=== PATIENT | male | born 1965 | race Caucasian/White ===

== ENCOUNTER → 2018-02-23 | Outpatient (CLI) | payer OTHER ==
[~2018-02-23] MED LIST: ATOR-22 PO; BENZ0.5T2 PO; CLON0.5T3 PO; GADAVIST IV PRN; QUET1TAB37 PO; RANI300T2 PO
--- NOTE | 2018-02-23 11:03 | DIAGNOSTIC IMAGING REPORT ---
LUMBAR SPINE COMBINATION HISTORY: Pain. Neuropathy. LEFT SCIATICA TINGLING,NUMBNESS, S/P LAMINECTOMY TECHNIQUE: Multiplanar multisequence MRI of the lumbar spine was performed both before and after the intravenous administration of contrast. COMPARISON: None. FINDINGS: For the purpose of the report the L5-S1 disc space will be located on axial image 23 of 25. Unremarkable signal characteristics of the vertebral bodies. Slight concave deformity superior endplate L4 considered old. Moderate degenerative disc change from L3 through S1. Findings consistent with a posterior laminectomy and fusion at L5-S1 with evidence for disc spacer at the associated disc space level. No evidence for abnormal postcontrast enhancement. L1-L2: No significant central canal or neural foraminal narrowing. L2-L3: No significant central canal or neural foraminal narrowing. L3-L4: No significant central canal or neural foraminal narrowing. L4-L5: Mild osteophytic narrowing of the neuroforamina bilaterally. No significant compromise of the spinal canal. L5-S1: Findings consistent with posterior decompression laminectomy and fusion. Hardware appears to be intact. No foramina are patent bilaterally. IMPRESSION: 1. Findings consistent with a posterior laminectomy and fusion at L5-S1 with associated disc spacer. 2. Moderate osteophytic narrowing of the neuroforamina bilaterally at L4-L5 slightly increased in prominence on the left as compared to the right. 3. No evidence for disc herniation or significant spinal stenosis. The above report was generated using voice recognition software. It may contain grammatical, syntax or spelling errors. Electronically signed by: Vincenzo Lopez M.D. 02/23/2018 11:02 AM Dictated Date/Time: 02/23/2018 10:53 AM
== END | disposition home or self-care (01) ==
LOC: C.MRI 09:29
PROVIDERS: ATTEND Internal Medicine
DX: M54.42 Lumbago with sciatica, left side (principal); M25.78 Osteophyte, vertebrae

== ENCOUNTER 2020-07-13 10:48 | Inpatient (IN) ==
--- OUTSIDE RECORDS SUMMARY | 2020-07-13 10:50 | External Medical Summary | Continuity of Care Document ---
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 , M.D. Refills: 0 Hydrocodone-Acetaminophen 5-500 MG TABS; TAKE 1 TO 2 TABLETS EVERY 6 HOURS NEEDED FOR PAIN. , M.D. Refills: 0 Ibuprofen 200 MG Oral Tablet; TAKE TABLET PRN , M.D. Refills: 0 SEROquel XR 300 MG Oral Tablet Extended Release 24 Canelo r; TAKE 1 TABLET DAILY. , M.D. Start: 08-Apr-2015 Refills: 0 Atorvastatin Calcium 20 MG Oral Tablet; TAKE 1 TABLET DAILY. , M.D. Refills: 0 clonazePAM 0.5 MG Oral Tablet; TAKE 1 TAB 3 TIMES DAILY Case , JORGE Matson Refills: 0 Procedures History of Lumbar Vertebral Fusion Statu s: Completed Immunizations Influenza On: Jul-2013 Family History Sister Family history of Thyroid Disorder (V18.19) Status: Active Mother Family history of Diabetes Mellitus (V18.0) Status: Active Family history of Heart Disease (V17.49) Status: Active Family history of Alzheimer Disease Status: Active Father Family history of Malignant Pancreatic Neoplasm Status: Acti ve Family history of Neoplasm Of The Prostate Gland Status: Act emily Unknown Family Member Family history of Hypertension (V17.49) Status: Active Comments: Family History Family history of Dementia Status: Active Comments: Fam jose History Social History - Smoking Status Never smoked tobacco Plan of Treatment Planned Observations Planned Goals not documented Results No Known Results Results not documented
--- OUTSIDE RECORDS SUMMARY | 2020-07-13 10:50 | External Medical Summary | Continuity of Care Document ---
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 , M.D. Refills: 0 Hydrocodone-Acetaminophen 5-500 MG TABS; TAKE 1 TO 2 TABLETS EVERY 6 HOURS NEEDED FOR PAIN. , M.D. Refills: 0 Ibuprofen 200 MG Oral Tablet; TAKE TABLET PRN , M.D. Refills: 0 clonazePAM 0.5 MG Oral Tablet; TAKE 1 TAB 3 TIMES DAILY Case JORGE Refills: 0 Atorvastatin Calcium 20 MG Oral Tablet; TAKE 1 TABLET DAILY. , M.D. Refills: 0 SEROquel XR 300 MG Oral Tablet Extended Release 24 Canelo r; TAKE 1 TABLET DAILY. , M.D. Start: 08-Apr-2015 Refills: 0 Procedures History of Lumbar Vertebral [...]
[2020-07-13] MEDS ORDERED: ONDANSETRON INJ 2 MG/ML 2 ML VIAL IV STA (11:18)
[2020-07-13] MEDS ORDERED: MoRPHine SULFATE 4 MG/ML 1 ML CARP\\VIAL IV STA (11:18)
[2020-07-13] MEDS ORDERED: SODIUM CHLORIDE 0.9% 1000ML 2,000 ML IV ONE (11:21)
[2020-07-13] MEDS ORDERED: OPTIRAY 320 125ml IV ONE (11:47)
[2020-07-13 11:49] LABS: Basophils # (auto) 0.01 K/uL (0-0.2); Basophils % (auto) 0.1 %; Eosinophils # (auto) 0.02 K/uL (0-0.5); Eosinophils % (auto) 0.1 %; Hematocrit (blood only) 47.7 % (42-52); Immature Granulocytes # (auto) 0.06 K/uL (0.00-0.02); Immature Granulocytes % (auto) 0.4 %; Lymphocytes # (auto) 0.88 K/uL (1.2-3.4); Lymphocytes % (auto) 6.5 %; Mean Corpuscular Hemoglobin 31.7 pg (25-34); Mean Corpuscular Hgb Conc 33.5 g/dL (32-36); Mean Corpuscular Volume 94.6 fL (80-100); Monocytes # (auto) 1.54 K/uL (0.11-0.59); Monocytes % (auto) 11.3 %; Neutrophils # (auto) 11.13 K/uL (1.4-6.5); Neutrophils % (auto) 81.6 %; Platelet Count 255 K/uL (130-400); RDW Coefficient of Variation 13.1 % (11.5-14.5); RDW Standard Deviation 45.4 fL (36.4-46.3); Red Blood Count 5.04 M/uL (4.7-6.1); White Blood Count 13.64 K/uL (4.8-10.8)
[2020-07-13 12:00] LABS: Partial Thromboplastin Ratio 1.2; Partial Thromboplastin Time 33.9 Seconds (21.0-31.0); Prothrombin Time 10.9 Seconds (9.0-12.0)
[2020-07-13 12:05] LABS: Albumin Level 3.8 gm/dl (3.4-5.0); BUN Creatinine Ratio 12.5 (10-20); Calcium 10.1 mg/dl (8.5-10.1); Creatinine Clr Calc Pharmacy 104.2 ml/min; Est GFR (African American) 112.9; Est GFR (Non-African American) 97.4; Magnesium 2.3 mg/dl (1.8-2.4); Potassium 3.9 mmol/L (3.5-5.1)
[2020-07-13 12:08] LABS: Albumin Globulin Ratio 0.9 (0.9-2); Bilirubin,Total 0.9 mg/dl (0.2-1); Globulin 4.1 gm/dl (2.5-4.0); Total Protein 7.9 gm/dl (6.4-8.2)
[2020-07-13] MEDS ORDERED: AMPICILLIN/SULBACTAM SOD 3,000 MG in 0.9 % SODIUM CHLORIDE 100 ML IV STA (12:15)
--- NOTE | 2020-07-13 12:27 | Emergency Department Note ---
History of Present Illness General Chief complaint: Facial Injury/Pain Stated complaint: 3 TEETH THAT ARE CRACKED Time Seen by Provider: 07/13/20 11:02 History of Present Illness Maximum Pain Intensity: 7 This patient is a 54-year-old male who presents ambulatory to the emergency department for evaluation of severe jaw pain and tooth pain that has gotten progressively worse since 07/07 first when he broke off both his right upper and lower molar when he was eating a cashew. The patient has not followed up with a dentist. He has tried oxycodone with minimal relief of the pain. The patient felt feverish 2 days ago. His temperature is 100 F. He is now having difficulty opening the mouth. He denies any difficulty swallowing or shortness of breath. The pain is throbbing in nature and worse with any movement of the jaw Home Medications Home Medications Medication Instructions Recorded Confirmed Type aspirin 81 mg PO DAILY 07/13/20 07/13/20 History atorvastatin 20 mg PO DAILY 07/13/20 07/13/20 History bupropion HCl 150 mg PO DAILY 07/13/20 07/13/20 History bupropion HCl 300 mg PO DAILY 07/13/20 07/13/20 History cholecalciferol (vitamin D3) 10 mcg PO DAILY 07/13/20 07/13/20 History [Vitamin D3] duloxetine 120 mg PO DAILY 07/13/20 07/13/20 History magnesium oxide 400 mg PO DAILY 07/13/20 07/13/20 History meloxicam 7.5 mg PO BID 07/13/20 07/13/20 History multivitamin 1 tab PO DAILY 07/13/20 07/13/20 History omeprazole 40 mg PO BID 07/13/20 07/13/20 History oxycodone 10 mg PO Q12H 07/13/20 07/13/20 History oxycodone 10 mg PO Q8H PRN 07/13/20 07/13/20 History potassium 99 mg PO DAILY 07/13/20 07/13/20 History propranolol 20 mg PO BID 07/13/20 07/13/20 History quetiapine 25 mg PO HS 07/13/20 07/13/20 History ropinirole 1 mg PO DAILY 07/13/20 07/13/20 History terazosin 1 mg PO BID 07/13/20 07/13/20 History vitamin B complex 1 tab PO DAILY 07/13/20 07/13/20 History Allergies Allergy/AdvReac Type Severity Reaction Status Date / Time No Known Allergies Allergy Unknown Verified 07/13/20 11:41 Past Med/Surg History Medical History (Updated 07/13/20 @ 21:03 by Suzi Grijalva PA-C) Anxiety Chronic pain Depression GERD (gastroesophageal reflux disease) Hyperlipidemia Surgical History (Updated 07/13/20 @ 15:54 by Chelsea Conklin PA-C) History of back surgery Family History (Updated 07/13/20 @ 15:54 by Chelsea Conklin PA-C) Other Cancer Diabetes Social History (Updated 07/13/20 @ 15:54 by Chelsea Conklin PA-C) Smoking Status: Never smoker Second Hand Exposure: Yes; Hx Alcohol Use: Yes Alcohol type: beer, wine and hard liquor Hx Substance Use: No Preferred Language: Turkish Hand Wood Sander Required: No Beliefs That Will Affect Care: None Current Living Situation: Spouse and Family Other Information That Helps Us Care for You: No Feels Safe at Home: Yes Safety Concerns: Feels Safe At This Time Review of Systems A total of 10 systems reviewed and were otherwise negative Physical Exam Vital Signs Vital Signs - 24 hr 07/13/20 10:53 07/13/20 12:00 07/13/20 12:03 Temperature 39.5 C H Temperature Source Oral Pulse Rate 133 H 113 H 115 H Pulse Rate from SpO2 Sensor 113 H 113 H Respiratory Rate 20 23 26 H Respiratory Effort / Characteristics Non-Labored Spontaneous Respiratory Depth Normal Blood Pressure 130/82 133/92 Blood Pressure Mean 98 116 Blood Pressure Position Sitting Pulse Oximetry 96 94 96 Oxygen Delivery Method Room Air Sepsis Recent Fever Within 48 Hours Yes Sepsis New/Unexplained Change in Mental Status No Sepsis Action Taken by Nursing No Action Required 07/13/20 12:10 07/13/20 12:20 07/13/20 12:54 Temperature Temperature Source Pulse Rate 133 H 110 H 124 H Pulse Rate from SpO2 Sensor 119 H 109 H 123 H Respiratory Rate 21 19 24 Respiratory Effort / Characteristics Respiratory Depth Blood Pressure Blood Pressure Mean Blood Pressure Position Pulse Oximetry 96 95 Oxygen Delivery Method Sepsis Recent Fever Within 48 Hours Sepsis New/Unexplained Change in Mental Status Sepsis Action Taken by Nursing 07/13/20 13:00 07/13/20 13:01 07/13/20 13:10 Temperature Temperature Source Pulse Rate 116 H 115 H 116 H Pulse Rate from SpO2 Sensor 115 H 114 H 116 H Respiratory Rate 20 20 24 Respiratory Effort / Characteristics Respiratory Depth Blood Pressure 140/96 Blood Pressure Mean 103 Blood Pressure Position Pulse Oximetry 96 97 96 Oxygen Delivery Method Sepsis Recent Fever Within 48 Hours Sepsis New/Unexplained Change in Mental Status Sepsis Action Taken by Nursing 07/13/20 14:53 Temperature 38.1 C H Temperature Source Oral Pulse Rate Pulse Rate from SpO2 Sensor Respiratory Rate Respiratory Effort / Characteristics Respiratory Depth Blood Pressure Blood Pressure Mean Blood Pressure Position Pulse Oximetry Oxygen Delivery Method Sepsis Recent Fever Within 48 Hours Sepsis New/Unexplained Change in Mental Status Sepsis Action Taken by Nursing Constitutional WD/WN, vitals as above Eyes EOM intact bilaterally ENMT Significant erythema and edema noted particularly over the gumline near the right lower molar. No pointing or purulent drainage noted in the area. Foul odor noted. Overall dentition is very poor. Trismus noted. Edema noted over the right mandibular area. Neck trachea midline Respiratory normal respiratory effort, lungs clear to auscultation Cardiovascular RRR, no murmur, no edema Gastrointestinal (Abdomen) normal bowel sounds, soft, nontender, no hepatosplenomegaly Musculoskeletal no cyanosis or clubbing, extremities motor strength 5/5 Skin no rashes, warm and dry Neurologic Alert and oriented x3. No focal motor deficits. Psychiatric Acting appropriately Course Course Patient was seen and examined Vital signs including blood pressure were reviewed medications list was verified with patient Labs were obtained, and a saline lock was established The patient was put on the monitor. Medications were ordered. Imaging was performed and reviewed. Upon reevaluation, the patient was feeling slightly better. We discussed his results. He voiced understanding The case was discussed with my supervising physician, maxillofacial surgery and the hospitalist service. The patient will be evaluated for likely inpatient management Consultations Consultation #1: Dr. Osorio Consultation #2: [facility] hospitalist group Administered Medications Acetaminophen (Acetaminophen 325 Mg Tab) 325 mg PO Q6H PRN PRN Reason: Pain or Fever Stop: 08/12/20 19:22 Last Admin: 07/13/20 20:42 Dose: 325 mg Documented by: [id number] Oxycodone HCl (Oxycodone Hcl Ir 5 Mg Tab (Immediate Release)) 5 mg PO Q6H PRN PRN Reason: Moderate Pain Stop: 07/27/20 19:22 Last Admin: 07/13/20 21:02 Dose: 5 mg Documented by: [id number] Propranolol HCl (Propranolol Hcl 20 Mg Tab) 20 mg PO BID ANNIE Stop: 08/12/20 20:59 Last Admin: 07/13/20 20:42 Dose: 20 mg Documented by: [id number] Quetiapine Fumarate (Quetiapine Fumarate 25 Mg Tablet) 25 mg PO HS ANNIE Stop: 08/12/20 20:59 Last Admin: 07/13/20 20:42 Dose: 25 mg Documented by: [id number] Terazosin HCl (Terazosin Hcl 1 Mg Cap) 1 mg PO BID ANNIE Stop: 08/12/20 20:59 Last Admin: 07/13/20 20:42 Dose: 1 mg Documented by: [id number] Discontinued Medications Sodium Chloride (Nss 1000ml) 2,000 mls @ 999 mls/hr IV .Q2H1M ONE Stop: 07/13/20 13:21 Last Infusion: 07/13/20 13:35 Dose: 0 mls/hr Documented by: [id number] Admin: 07/13/20 11:34 Dose: 999 mls/hr Documented by: [id number] Ampicillin Sodium/Sulbactam Sodium 3,000 mg/ Sodium Chloride 108 mls @ 200 mls/hr IV NOW STA; Protocol Stop: 07/13/20 12:47 Last Infusion: 07/13/20 13:27 Dose: 0 mls/hr Documented by: [id number] Admin: 07/13/20 12:54 Dose: 200 mls/hr Documented by: [id number] Acetaminophen (Ofirmev) 1,000 mg in 100 mls @ 400 mls/hr IV NOW STA Stop: 07/13/20 15:36 Last Infusion: 07/13/20 16:28 Dose: 0 mls/hr Documented by: [id number] Admin: 07/13/20 15:30 Dose: 400 mls/hr Documented by: [id number] Sodium Chloride (Nss 1000ml) 1,000 mls @ 80 mls/hr IV .[id number] [facility] Stop: 07/14/20 03:59 Last Admin: 07/13/20 15:43 Dose: Not Given Documented by: [id number] Sodium Chloride (Nss 1000ml) 1,000 mls @ 999 mls/hr IV .Q1H1M ONE Stop: 07/13/20 16:33 Last Infusion: 07/13/20 16:29 Dose: 0 mls/hr Documented by: [id number] Admin: 07/13/20 15:41 Dose: 999 mls/hr Documented by: [id number] Sodium Chloride (Nss 1000ml) 1,000 mls @ 80 mls/hr IV .[id number] ANNIE Stop: 07/14/20 17:26 Last Infusion: 07/13/20 19:49 Dose: 0 mls/hr Documented by: [id number] Admin: 07/13/20 16:49 Dose: 80 mls/hr Documented by: [id number] Piperacillin Sod/Tazobactam (Sod 3.375 gm/ Dextrose) 115 mls @ 230 mls/hr IV NOW ONE; Protocol Stop: 07/13/20 17:14 Last Infusion: 07/13/20 18:22 Dose: 0 mls/hr Documented by: [id number] Admin: 07/13/20 17:51 Dose: 230 mls/hr Documented by: [id number] Ioversol (Optiray 320 125ml) 94 ml IV ONCE ONE Stop: 07/13/20 11:48 Last Admin: 07/13/20 11:48 Dose: 94 ml Documented by: [id number] Lidocaine HCl (Lidocaine Hcl Viscous Soln 2% 15 Ml Udc) 15 ml MT NOW ONE Stop: 07/13/20 17:56 Last Admin: 07/13/20 18:20 Dose: 15 ml Documented by: [id number] Metoprolol Tartrate (Metoprolol Tartrate 1 Mg/Ml Vial) 5 mg IV NOW STA Stop: 07/13/20 15:33 Last Admin: 07/13/20 15:51 Dose: 5 mg Documented by: [id number] Morphine Sulfate (Morphine Sulfate 4 Mg/Ml 1 Ml Carp\Vial) 4 mg IV NOW STA Stop: 07/13/20 11:19 Last Admin: 07/13/20 11:34 Dose: 4 mg Documented by: [id number] Morphine Sulfate (Morphine Sulfate 2 Mg/Ml Carp) 2 mg IV NOW STA Stop: 07/13/20 15:23 Last Admin: 07/13/20 15:30 Dose: 2 mg Documented by: [id number] Ondansetron HCl (Ondansetron Inj 2 Mg/Ml 2 Ml Vial) 4 mg IV NOW STA Stop: 07/13/20 11:19 Last Admin: 07/13/20 11:34 Dose: 4 mg Documented by: [id number] Medical Decision Making Medical Records Attestation: I reviewed the patient's medical records. Home Medications Current Medication List: was personally reviewed by me Laboratory Data Attestation: I reviewed the patient's lab results. Result diagrams: 07/13/20 11:30 07/13/20 11:30 Lab Results 07/13/20 07/13/20 07/13/20 Range/Units 11:30 11:30 11:30 WBC 13.64 H (4.8-10.8) K/uL RBC 5.04 (4.7-6.1) M/uL Hgb 16.0 (14.0-18.0) g/dL Hct 47.7 (42-52) % MCV 94.6 (80-100) fL MCH 31.7 (25-34) pg MCHC 33.5 (32-36) g/dL RDW Std Deviation 45.4 (36.4-46.3) fL RDW Coeff of Sherwin 13.1 (11.5-14.5) % Plt Count 255 (130-400) K/uL MPV 10.0 (7.4-10.4) fL Immature Gran % (Auto) 0.4 % Neut % (Auto) 81.6 % Lymph % (Auto) 6.5 % [place] % (Auto) 11.3 % Eos % (Auto) 0.1 % Baso % (Auto) 0.1 % Neut # (Auto) 11.13 H (1.4-6.5) K/uL Lymph # (Auto) 0.88 L (1.2-3.4) K/uL [place] # (Auto) 1.54 H (0.11-0.59) K/uL Eos # (Auto) 0.02 (0-0.5) K/uL Baso # (Auto) 0.01 (0-0.2) K/uL Immature Gran # (Auto) 0.06 H (0.00-0.02) K/uL PT 10.9 (9.0-12.0) Seconds INR 1.0 (0.9-1.1) APTT 33.9 H (21.0-31.0) Seconds PTT Ratio 1.2 Sodium 133 L (136-145) mmol/L Potassium 3.9 (3.5-5.1) mmol/L Chloride 96 L (98-107) mmol/L Carbon Dioxide 28 (21-32) mmol/L Anion Gap 9.0 (3-11) BUN 11 (7-18) mg/dl Creatinine 0.85 (0.6-1.4) mg/dl Est Cr Clr Drug Dosing 104.2 ml/min Est GFR ( Amer) 112.9 Est GFR (Non-Af Amer) 97.4 BUN/Creatinine Ratio 12.5 (10-20) Glucose 107 H (70-99) mg/dl Lactate (0.4-2.0) mmol/L Calcium 10.1 (8.5-10.1) mg/dl Magnesium 2.3 (1.8-2.4) mg/dl Total Bilirubin 0.9 (0.2-1) mg/dl AST 15 (15-37) U/L ALT 28 (12-78) U/L Alkaline Phosphatase 71 (45-117) U/L Total Protein 7.9 (6.4-8.2) gm/dl Albumin 3.8 (3.4-5.0) gm/dl Globulin 4.1 H (2.5-4.0) gm/dl Albumin/Globulin Ratio 0.9 (0.9-2) Urine Color Urine Appearance (Clear) Urine pH (4.5-7.5) Ur Specific [place] (1.000-1.030) Urine Protein (Negative) Urine Glucose (UA) (Negative) Urine Ketones (Negative) Urine Blood (Negative) Urine Nitrite (Negative) Urine Bilirubin (Negative) Urine Urobilinogen (Negative) Ur Leukocyte Esterase (Negative) 07/13/20 07/13/20 Range/Units 11:30 12:56 WBC (4.8-10.8) K/uL RBC (4.7-6.1) M/uL Hgb (14.0-18.0) g/dL Hct (42-52) % MCV (80-100) fL MCH (25-34) pg MCHC (32-36) g/dL RDW Std Deviation (36.4-46.3) fL RDW Coeff of Sherwin (11.5-14.5) % Plt Count (130-400) K/uL MPV (7.4-10.4) fL Immature Gran % (Auto) % Neut % (Auto) % Lymph % (Auto) % [place] % (Auto) % Eos % (Auto) % Baso % (Auto) % Neut # (Auto) (1.4-6.5) K/uL Lymph # (Auto) (1.2-3.4) K/uL [place] # (Auto) (0.11-0.59) K/uL Eos # (Auto) (0-0.5) K/uL Baso # (Auto) (0-0.2) K/uL Immature Gran # (Auto) (0.00-0.02) K/uL PT (9.0-12.0) Seconds INR (0.9-1.1) APTT (21.0-31.0) Seconds PTT Ratio Sodium (136-145) mmol/L Potassium (3.5-5.1) mmol/L Chloride (98-107) mmol/L Carbon Dioxide (21-32) mmol/L Anion Gap (3-11) BUN (7-18) mg/dl Creatinine (0.6-1.4) mg/dl Est Cr Clr Drug Dosing ml/min Est GFR ( Amer) Est GFR (Non-Af Amer) BUN/Creatinine Ratio (10-20) Glucose (70-99) mg/dl Lactate 1.2 (0.4-2.0) mmol/L Calcium (8.5-10.1) mg/dl Magnesium (1.8-2.4) mg/dl Total Bilirubin (0.2-1) mg/dl AST (15-37) U/L ALT (12-78) U/L Alkaline Phosphatase (45-117) U/L Total Protein (6.4-8.2) gm/dl Albumin (3.4-5.0) gm/dl Globulin (2.5-4.0) gm/dl Albumin/Globulin Ratio (0.9-2) Urine Color Yellow Urine Appearance Clear (Clear) Urine pH 5.0 (4.5-7.5) Ur Specific [place] 1.014 (1.000-1.030) Urine Protein Negative (Negative) Urine Glucose (UA) Negative (Negative) Urine Ketones 3+ H (Negative) Urine Blood Negative (Negative) Urine Nitrite Negative (Negative) Urine Bilirubin Negative (Negative) Urine Urobilinogen Negative (Negative) Ur Leukocyte Esterase Negative (Negative) Imaging Data Attestation: I personally reviewed and interpreted this imaging study as follows: Radiologist's Impression: CT facial bones with IV contrast IMPRESSION: 1. A 2.2 x 0.5 cm peripheral enhancing collection abutting the lingual surface of the mandible adjacent to ADA 31 consistent with an abscess. There is a 5 mm periapical lucency at ADA 31. 2. Mild thickening/edema within the right submandibular gland and mild right submandibular lymphadenopathy. This likely reactive to the adjacent mass process. 3. Slight mass effect along the right side of the oropharynx at this level. However, the airway remains patent. ACT 112: Negative or not required by law. Electronically signed by: Mann Williamson M.D. 07/13/2020 12:46 PM Dictated: 07/13/20 1238 Transcribed: 07/13/20 1238 MDM Narrative Differential diagnosis: Abscess, Howie angina, sepsis, fractured tooth, among others This patient is a 54-year-old male who presents emergency department complaining of increasing pain and swelling after breaking off a molar earlier this week. On exam, he did have swelling to the area. He was tachycardic and febrile. He did not have any signs of Howie angina. his labs revealed mild leukocytosis. CT scan was performed consistent with an abscess. This was discussed with maxillofacial surgery who kindly agreed to evaluate the patient. They agreed with IV antibiotics, hydration and hospitalist consultation. The patient will likely be admitted for further IV antibiotics, hydration and possible surgical management. The patient was in agreement and remained stable in the emergency department. Impression & Plan Sepsis, Dental abscess Discharge Plan Visit Data Chief Complaint: Facial Injury/Pain Stated Complaint: 3 TEETH THAT ARE CRACKED ED Provider: Anant Branham ED Midlevel Provider: Suzi Grijalva Discharge Problem: Sepsis, Dental abscess Patient Disposition: Admitted As Inpatient Discharge Instructions Interventions: ED Discharge Assessment Last Done: 07/13/20 16:05
--- NOTE | 2020-07-13 12:48 | CT Scan Report ---
CT facial bones w con HISTORY: broke R upper/lower molar facial swelling sepsis TECHNIQUE: Multiaxial CT images of the facial bones were performed following the use of intravenous c ontrast. COMPARISON STUDY: None. FINDINGS: Small periapical lucency at ADA 31 measuring 5 mm best seen image 57. There is a 2.3 x 0.5 cm peripherally enhancing collection abutting the lingual surface of the mandible adjacent to ADA 31 . This is best seen on axial image 70. This is consistent with an abscess. This abuts the right subma ndibular/sublingual space. There is mild thickening of the right submandibular gland and mild right s ubmandibular lymphadenopathy. This may be reactive to the abscess. There are slight mass effect along the oropharynx at this level. However, the airway remains patent. The parotid glands are symmetric. The visualized parenchyma and orbits are unremarkable. The pterygopalatine fossa are well-maintained. IMPRESSION: 1. A 2.2 x 0.5 cm peripheral enhancing collection abutting the lingual surface of the mandible adjace nt to ADA 31 consistent with an abscess. There is a 5 mm periapical lucency at ADA 31. 2. Mild thickening/edema within the right submandibular gland and mild right submandibular lymphadeno monica. This likely reactive to the adjacent mass process. 3. Slight mass effect along the right side of the oropharynx at this level. However, the airway remai ns patent. ACT 112: Negative or not required by law. Electronically signed by: Mann Williamson M.D. 07/13/2020 12:46 PM
[2020-07-13 13:01] LABS: Appearance Urine Clear (Clear); Bilirubin Urine Negative (Negative); Blood Urine Negative (Negative); Color Urine Yellow; Glucose Urine UA Negative (Negative); Ketones Urine 3+ (Negative); Leukocyte Esterase Urine Negative (Negative); Nitrite Urine Negative (Negative); Protein Urine Negative (Negative); Specific Gravity Urine 1.014 (1.000-1.030); Urobilinogen Urine Negative (Negative)
[2020-07-13] MEDS ORDERED: ACETAMINOPHEN 1,000 MG/100 ML VIAL IV STA (15:22)
[2020-07-13] MEDS ORDERED: MoRPHine SULFATE 2 MG/ML CARP IV STA (15:22)
[2020-07-13] MEDS: SODIUM CHLORIDE 0.9% 1000ML 1,000 ML IV SCH ×2 (15:31→15:43)
[2020-07-13] MEDS ORDERED: METOPROLOL TARTRATE 1 MG/ML VIAL IV STA (15:32)
[2020-07-13] MEDS ORDERED: SODIUM CHLORIDE 0.9% 1000ML 1,000 ML IV ONE (15:33)
--- NOTE | 2020-07-13 15:57 | History & Physical Report ---
Date of Service July 13, 2020 Assessment & Plan (1) Dental abscess: right lower jaw pain and sepsis from oral infection and dental abscess that were caused by fractured molars (three) Pt is 54 y/o M with PMH anxiety, depression, dyslipidemia, chronic pain presented to ER with complaint of right-sided dental pain after right upper and lower molar broke one week ago. Worsening jaw pain and facial edema. +fever/chills, nausea. No vomiting In ER T: 39.5 down to 38.1, P 133 down to 116, R: 23, BP: 130/82 WBC: 13, lactate: 1.2. CT FACE: 1. A 2.2 x 0.5 cm peripheral enhancing collection abutting the lingual surface of the mandible adjacent to ADA 31 consistent with an abscess. There is a 5 mm periapical lucency at ADA 31. 2. Mild thickening/edema within the right submandibular gland and mild right submandibular lymphadenopathy. This likely reactive to the adjacent mass process. 3. Slight mass effect along the right side of the oropharynx at this level. However, the airway remains patent. Meets sepsis criteria In ER given 2L NSS, Unasyn, morphine, zofran Blood cultures pending Give additional 1L NSS followed by 80ml/hr Zosyn Morphine, IV Tylenol prn pain NPO for now Consult maxillofacial - Dr Osorio. Aware from ER provider and reports will come to see pt today CBC, BMP in am (2) Sinus tachycardia: Initial 130's down to 116 Probable secondary to fever, dehydration, and missed propranolol dosing Will give dose of IV Lopressor now since NPO IVF and antibiotics as above Monitor (3) Chronic pain: Follows with outpatient [facility]TM pain management Hold oxycodone for now since NPO Morphine prn (4) Anxiety: (5) Depression: Follows with psych outpatient Hold home meds including propranolol for now since NPO Ativan prn anxiety (6) Hyperlipidemia: Hold statin for now DVT Prophylaxis -SCDs Full Code as per discussion with pt Follows with Dr Campos for routine care Pt was seen and care coordinated with Dr Macedo. See addendum History of Present Illness Chief Complaint: Dental pain Primary Care Provider: Brittany Campos MD Pt is 54 y/o M with PMH anxiety, depression, dyslipidemia, chronic pain presented to ER with complaint of right-sided dental pain x 1 week. Patient states approximately 1 week ago was eating cashew when right upper and lower molar broke. Patient states past several days has been having pain to jaw and noted right facial swelling. 3 days ago patient noticed temp of 100 F. Has not taken temperature last couple days however has felt chills. Patient also complains of nausea without vomiting. Today noticed foul taste in mouth and purulent drainage from right lower gums. Complains of pain with chewing. Today noticed limited ability to open jaw. Also pain with swallowing. Able to swallow saliva. Has not followed with dentist. Only took oxycodone today, did not have his other daily medications. Denies diarrhea, constipation, GORDON, dizziness, syncope, vision changes, neck pain, CP, SOB, orthopnea, palpitations, cough, otalgia, rhinorrhea, abdominal pain, paresthesias, weakness, extremity weakness, extremity edema, rashes, urinary symptoms. Allergies Allergy/AdvReac Type Severity Reaction Status Date / Time No Known Allergies Allergy Unknown Verified 07/13/20 11:41 Home Medications Home Medications Medication Instructions Recorded Confirmed Type aspirin 81 mg PO DAILY 07/13/20 07/13/20 History atorvastatin 20 mg PO DAILY 07/13/20 07/13/20 History bupropion HCl 150 mg PO DAILY 07/13/20 07/13/20 History bupropion HCl 300 mg PO DAILY 07/13/20 07/13/20 History cholecalciferol (vitamin D3) 10 mcg PO DAILY 07/13/20 07/13/20 History [Vitamin D3] duloxetine 120 mg PO DAILY 07/13/20 07/13/20 History magnesium oxide 400 mg PO DAILY 07/13/20 07/13/20 History meloxicam 7.5 mg PO BID 07/13/20 07/13/20 History multivitamin 1 tab PO DAILY 07/13/20 07/13/20 History omeprazole 40 mg PO BID 07/13/20 07/13/20 History oxycodone 10 mg PO Q12H 07/13/20 07/13/20 History oxycodone 10 mg PO Q8H PRN 07/13/20 07/13/20 History potassium 99 mg PO DAILY 07/13/20 07/13/20 History propranolol 20 mg PO BID 07/13/20 07/13/20 History quetiapine 25 mg PO HS 07/13/20 07/13/20 History ropinirole 1 mg PO DAILY 07/13/20 07/13/20 History terazosin 1 mg PO BID 07/13/20 07/13/20 History vitamin B complex 1 tab PO DAILY 07/13/20 07/13/20 History Past Med/Surg History Medical History (Updated 07/13/20 @ 15:57 by Chelsea Conklin PA-C) Anxiety Chronic pain Depression GERD (gastroesophageal reflux disease) Hyperlipidemia Surgical History (Updated 07/13/20 @ 15:54 by Chelsea Conklin PA-C) History of back surgery Family History (Updated 07/13/20 @ 15:54 by Chelsea Conklin PA-C) Other Cancer Diabetes Social History (Updated 07/13/20 @ 15:54 by Chelsea Conklin PA-C) Smoking Status: Never smoker Hx Alcohol Use: Yes (2-3 beers on the weekends) Hx Substance Use: No Preferred Language: German Feels Safe at Home: Yes Review of Systems Review of Systems: All systems reviewed & are unremarkable except as noted in HPI & below Physical Exam Physical Exam: General: no acute distress, WDWN Head: normocephalic, atraumatic Eyes: PERRL, EOM's intact, conjunctiva non-injected, anicteric ENT: normal inspection external ears, nose, mucous membranes dry; poor dentition throughout, right upper and lower molars fractured; +right sided facial swelling, limited opening of jaw Neck: supple, trachea midline, +cervical lymphadenopathy, ROM neck intact Lungs: clear, no respiratory distress, no wheezing/rhonchi/rales CV: regular rhythm, +tachycardia, rate 120, no murmur, no pretibial edema Abd: normal BS, soft, non-tender Ext: no cyanosis, no calf tenderness Neuro: A&O x 3, no focal deficits noted, normal affect Skin: warm, dry Results & Data Results & Data ([facility]) Vital Signs (Past 12 Hours) Vital Signs Temp Pulse Resp BP Pulse Ox 07/13/20 14:53 38.1 C H 07/13/20 13:10 116 H 24 96 07/13/20 13:01 115 H 20 97 07/13/20 13:00 116 H 20 140/96 96 07/13/20 12:54 124 H 24 07/13/20 12:20 110 H 19 95 07/13/20 12:10 133 H 21 96 07/13/20 12:03 115 H 26 H 96 07/13/20 12:00 113 H 23 133/92 94 07/13/20 10:53 39.5 C H 133 H 20 130/82 96 Laboratory Results Short CBC 07/13/20 Range/Units 11:30 WBC 13.64 H (4.8-10.8) K/uL Hgb 16.0 (14.0-18.0) g/dL Hct 47.7 (42-52) % Plt Count 255 (130-400) K/uL BMP 07/13/20 11:30 Sodium 133 L Potassium 3.9 Chloride 96 L Carbon Dioxide 28 BUN 11 Creatinine 0.85 Glucose 107 H Calcium 10.1 Liver Function 07/13/20 Range/Units 11:30 Total Bilirubin 0.9 (0.2-1) mg/dl AST 15 (15-37) U/L ALT 28 (12-78) U/L Alkaline Phosphatase 71 (45-117) U/L Albumin 3.8 (3.4-5.0) gm/dl Urine 07/13/20 Range/Units 12:56 Urine Color Yellow Urine Appearance Clear (Clear) Urine pH 5.0 (4.5-7.5) Ur Specific [place] 1.014 (1.000-1.030) Urine Protein Negative (Negative) Urine Glucose (UA) Negative (Negative) Diagnostic Findings CT FACE: IMPRESSION: 1. A 2.2 x 0.5 cm peripheral enhancing collection abutting the lingual surface of the mandible adjacent to ADA 31 consistent with an abscess. There is a 5 mm periapical lucency at ADA 31. 2. Mild thickening/edema within the right submandibular gland and mild right submandibular lymphadenopathy. This likely reactive to the adjacent mass process. 3. Slight mass effect along the right side of the oropharynx at this level. However, the airway remains patent. Code Status & VTE Plan VTE Prophylaxis Plan VTE Prophylaxis will be ordered: Yes Supervising Physician Co-Signing Physician Notes I, Dr. Buddy Macedo, have seen and examined the patient Jatin Cooper with physician nurses medical assistants phlebotomists On Physical Exam General: no acute distress HEENT: inflamed right lower gums, right lower jaw tenderness to palpation Heart: tachycardic Lung: clear to auscultation, no wheezing Abdomen: soft, nontender, positive bowel sounds Neuro/Psych: no focal neurological deficits, normal affect Assessment and Plan -This is a patient with right lower jaw pain and sepsis from oral infection and dental abscess that were caused by fractured molars (three) -patient was given IV Unasyn and already 2 liters of IV fluids by the ED provider; ED provider called Oral & Maxillofacial Surgeon Dr. Osorio who plans to take patient to operating room -COVID 19 screening was ordered to be performed before patient goes to operating room for procedure -will plan to continue IV antibiotics and use IV Zosyn for better microbial coverage. Follow the blood cultures and any subsequent specimens that Dr. Osorio sends off from the operating room -give further IV fluids as needed additional 1 more liter of IV fluids to be given in the ED. Determine when patient can be allowed to have a diet after the procedure. -give prn pain medications and IV acetaminophen for pain or fever -avoid NSAIDs to prevent exacerbating any potential oral bleed -prn IV metoprolol 5 mg q4 hours as needed if heart rates above 110 bpm. Patient can resume home oral dose of propanol and or oral home medications for anxiety and depression when allowed to eat. Can give prn IV Ativan as substitute for now -agree with other assessment and plans as documented by physician nurses medical assistants phlebotomists -My colleague hospitalist Dr. Bowser will be following the patient starting on 07/14/2020
[2020-07-13] MEDS ORDERED: SODIUM CHLORIDE 0.9% 1000ML 1,000 ML IV SCH (16:27)
[2020-07-13] MEDS ORDERED: MoRPHine SULFATE 4 MG/ML 1 ML CARP\\VIAL IV PRN (16:27)
[2020-07-13] MEDS ORDERED: POLYETHYLENE (MIRALAX) 17 GM PACK PO PRN (16:27)
[2020-07-13] MEDS ORDERED: ONDANSETRON INJ 2 MG/ML 2 ML VIAL IV PRN (16:27)
[2020-07-13] MEDS ORDERED: METOPROLOL TARTRATE 1 MG/ML VIAL IV PRN (16:27)
[2020-07-13] MEDS ORDERED: ACETAMINOPHEN 1000 MG/100 ML IV IV PRN (16:27)
[2020-07-13] MEDS ORDERED: LORazepam 0.5 MG/1 ML VIAL IV PRN (16:27)
[2020-07-13] MEDS ORDERED: PIPERACILL/TAZOBAC CONSULT ACTIVE PRN (16:31)
[2020-07-13] MEDS ORDERED: PIPERACILLIN/TAZOBACTAM 3.375 GM in DEXTROSE 5% 100 ML IV ONE (16:45)
[2020-07-13] MEDS ORDERED: LIDOCAINE HCL VISCOUS SOLN 2% 15 ML UDC MT ONE (17:55)
[2020-07-13] MEDS ORDERED: LIDOCAINE HCL VISCOUS SOLN 2% 15 ML UDC MT PRN (17:55)
--- NOTE | 2020-07-13 18:29 | Surgery Consultation ---
Date of Consultation July 13, 2020 Oral Maxillofacial Surgery Exam emergency consult trismus, swelling, abscess fractured tooth 3 31 Present Complaint: I have pain/swelling/drainage from my infected/fractured lower right molar teeth. Symptoms have been ongoing for a while they would come and go. A detailed oral exam was completed. Finding--acute facial and gingival/ sublingual swelling associated with the fractured # 31 tooth, tender gingival tissue with deep pocket formation.removal of # [address] scan reviewed and shows acute abscess associated with # 31 swelling Floor of mouth, mandibular space and submandibular space. The mandibular space is why patient has trismus. He is able to open mouth but due to pain restricted. Soft tissue of the tongue, hard/soft palate, posterior pharyngeal area all with in normal limits, no pathology or abnormal findings noted. Lingual swelling (floor of mouth) swollen and L&D needed in this area as well as submandibular and Mandibular space. Cancer exam--No lesions noted that require follow up or Bx.However patient does use chew tobacco and tissue changes noted as well as severely abraded teeth Oral Care---Overall oral care is poor Occlusion---Class III TMJ exam: No pop, clicking, pain, good ROM, No history of TMJ injury or dysfunction Periodontal exam---poor secondary to chew tobacco and lack of dental care Neck is supple, FROM, Able to extend and flex neck w/o difficulty, no masses other than the swelling from current infection , no abnormalities, no airway issues, no evidence of sleep apnea. Plan: Set up with general anesthesia in hospital due to complexity of the procedure Risks reviewed (see below) Physical exam completed I reviewed the treatment plan and consent with the patient . Understanding was expressed. Time was given for questions regarding the surgery, risks and post op care. The procedure will be set up in the the main OR tomorrow AM. Review of informed consent with patient Reason for surgery = Drain infection remove fractured # 31 tooth The following # 31 tooth is decayed and fractured and removal is indicated CHECO: Risks discussed: Pain,swelling,infection, dry socket, delayed healing, nerve injury to face,lips,tongue,chin area which could be permanent (rare). TMJ, jaw stiffness, change in bite (rare), ear pain (referred). Need to leave a small root fragment in place to avoid injury to nerve or sinus. Home care reviewed--tooth brushing, rinsing, follow up care with Dr Osorio. diet=[id number] dental. Discussed activity level, driving/work while on Rx pain Meds. Plan: NPO Midnight For the GA and surgery at Hospital Supervising Physician Co-Signing Physician Notes I, Dr. Buddy Macedo, have seen and examined the patient Jatin Cooper with physician school office assistant On Physical Exam General: no acute distress HEENT: inflamed right lower gums, right lower jaw tenderness to palpation Heart: tachycardic Lung: clear to auscultation, no wheezing Abdomen: soft, nontender, positive bowel sounds Neuro/Psych: no focal neurological deficits, normal affect Assessment and Plan -This is a patient with right lower jaw pain and sepsis from oral infection and dental abscess that were caused by fractured molars (three) -patient was given IV Unasyn and already 2 liters of IV fluids by the ED provider; ED provider called Oral & Maxillofacial Surgeon Dr. Osorio who plans to take patient to operating room -COVID 19 screening was ordered to be performed before patient goes to operating room for procedure -will plan to continue IV antibiotics and use IV Zosyn for better microbial coverage. Follow the blood cultures and any subsequent specimens that Dr. Osorio sends off from the operating room -give further IV fluids as needed additional 1 more liter of IV fluids to be given in the ED. Determine when patient can be allowed to have a diet after the procedure. -give prn pain medications and IV acetaminophen for pain or fever -avoid NSAIDs to prevent exacerbating any potential oral bleed -prn IV metoprolol 5 mg q4 hours as needed if heart rates above 110 bpm. Patient can resume home oral dose of propanol and or oral home medications for anxiety and depression when allowed to eat. Can give prn IV Ativan as substitute for now -agree with other assessment and plans as documented by physician school office assistant -My colleague hospitalist Dr. Bowser will be following the patient starting on 07/14/2020 History of Present Illness Attending Physician: Buddy Macedo MD Allergies Allergy/AdvReac Type Severity Reaction Status Date / Time No Known Allergies Allergy Unknown Verified 07/13/20 11:41 Home Medications Home Medications Medication Instructions Recorded Confirmed Type aspirin 81 mg PO DAILY 07/13/20 07/13/20 History atorvastatin 20 mg PO DAILY 07/13/20 07/13/20 History bupropion HCl 150 mg PO DAILY 07/13/20 07/13/20 History bupropion HCl 300 mg PO DAILY 07/13/20 07/13/20 History cholecalciferol (vitamin D3) 10 mcg PO DAILY 07/13/20 07/13/20 History [Vitamin D3] duloxetine 120 mg PO DAILY 07/13/20 07/13/20 History magnesium oxide 400 mg PO DAILY 07/13/20 07/13/20 History meloxicam 7.5 mg PO BID 07/13/20 07/13/20 History multivitamin 1 tab PO DAILY 07/13/20 07/13/20 History omeprazole 40 mg PO BID 07/13/20 07/13/20 History oxycodone 10 mg PO Q12H 07/13/20 07/13/20 History oxycodone 10 mg PO Q8H PRN 07/13/20 07/13/20 History potassium 99 mg PO DAILY 07/13/20 07/13/20 History propranolol 20 mg PO BID 07/13/20 07/13/20 History quetiapine 25 mg PO HS 07/13/20 07/13/20 History ropinirole 1 mg PO DAILY 07/13/20 07/13/20 History terazosin 1 mg PO BID 07/13/20 07/13/20 History vitamin B complex 1 tab PO DAILY 07/13/20 07/13/20 History Patient History Medical History (Updated 07/13/20 @ 15:57 by Chelsea Conklin PA-C) Anxiety Chronic pain Depression GERD (gastroesophageal reflux disease) Hyperlipidemia Surgical History (Updated 07/13/20 @ 15:54 by Chelsea Conklin PA-C) History of back surgery Family History (Updated 07/13/20 @ 15:54 by Chelsea Conklin PA-C) Other Cancer Diabetes Social History (Updated 07/13/20 @ 15:54 by Chelsea Conklin PA-C) Smoking Status: Never smoker Hx Alcohol Use: Yes (2-3 beers on the weekends) Hx Substance Use: No Preferred Language: Vietnamese Feels Safe at Home: Yes Results & Data ([facility]) Vital Signs (Past 12 Hours) Vital Signs Temp Pulse Resp BP Pulse Ox 07/13/20 16:05 92 H 18 125/83 94 07/13/20 15:51 116 H 124/93 07/13/20 14:53 38.1 C H 07/13/20 13:10 116 H 24 96 07/13/20 13:01 115 H 20 97 07/13/20 13:00 116 H 20 140/96 96 07/13/20 12:54 124 H 24 07/13/20 12:20 110 H 19 95 07/13/20 12:10 133 H 21 96 07/13/20 12:03 115 H 26 H 96 07/13/20 12:00 113 H 23 133/92 94 07/13/20 10:53 39.5 C H 133 H 20 130/82 96 PG Care Time/CCT Total # of Minutes Spent Total Time Spent with Patient: Total time spent is greater than 50% in coordination of care (as documented) at patient's floor/unit and/or counseling patient: Coding Level of Care Code 34832 Initial Inpt Care Lvl 3
[2020-07-13] MEDS: ACETAMINOPHEN 325 MG TAB PO PRN (20:42)
[2020-07-13] MEDS: PROPRANOLOL HCL 20 MG TAB PO SCH (20:42)
[2020-07-13] MEDS: TERAZOSIN HCL 1 MG CAP PO SCH (20:42)
[2020-07-13] MEDS: QUEtiapine FUMARATE 25 MG TABLET PO SCH (20:42)
[2020-07-13] MEDS: oxyCODONE HCL IR 5 MG TAB (IMMEDIATE RELEASE) PO PRN (21:02)
[2020-07-13] MEDS: PIPERACILLIN/TAZOBACTAM 3.375 GM in DEXTROSE 5% 100 ML IV SCH (22:03)
[2020-07-14] MEDS: MoRPHine SULFATE 2 MG/ML CARP IV PRN ×2 (03:09→18:48)
[2020-07-14] MEDS: oxyCODONE HCL IR 5 MG TAB (IMMEDIATE RELEASE) PO PRN ×2 (03:49→18:40)
[2020-07-14] MEDS: PIPERACILLIN/TAZOBACTAM 3.375 GM in DEXTROSE 5% 100 ML IV SCH ×3 (06:45→22:06)
[2020-07-14 06:55] LABS: Basophils # (auto) 0.03 K/uL (0-0.2); Basophils % (auto) 0.3 %; Eosinophils # (auto) 0.08 K/uL (0-0.5); Eosinophils % (auto) 0.9 %; Hematocrit (blood only) 39.2 % (42-52); Hemoglobin 13.1 g/dL (14.0-18.0); Immature Granulocytes # (auto) 0.03 K/uL (0.00-0.02); Immature Granulocytes % (auto) 0.3 %; Lymphocytes # (auto) 1.69 K/uL (1.2-3.4); Lymphocytes % (auto) 19.7 %; Mean Corpuscular Hgb Conc 33.4 g/dL (32-36); Mean Corpuscular Volume 95.6 fL (80-100); Mean Platelet Volume 9.7 fL (7.4-10.4); Monocytes # (auto) 1.53 K/uL (0.11-0.59); Monocytes % (auto) 17.8 %; Neutrophils # (auto) 5.24 K/uL (1.4-6.5); Platelet Count 197 K/uL (130-400); RDW Coefficient of Variation 13.2 % (11.5-14.5); RDW Standard Deviation 46.3 fL (36.4-46.3)
[2020-07-14 07:22] LABS: BUN Creatinine Ratio 13.9 (10-20); Calcium 9.1 mg/dl (8.5-10.1); Creatinine Clr Calc Pharmacy 101.5 ml/min; Est GFR (African American) 118.2; Potassium 4.1 mmol/L (3.5-5.1)
[2020-07-14] MEDS: buPROPion XL 300 MG TABCR PO SCH (08:28)
[2020-07-14] MEDS: PROPRANOLOL HCL 20 MG TAB PO SCH ×2 (08:28→20:48)
[2020-07-14] MEDS: ATORVASTATIN 20 MG TAB PO SCH (08:28)
[2020-07-14] MEDS: buPROPion XL 150 MG TABCR PO SCH (08:29)
[2020-07-14] MEDS: TERAZOSIN HCL 1 MG CAP PO SCH ×2 (08:29→20:48)
[2020-07-14] MEDS: rOPINIRole HCL 1 MG TABLET PO SCH (08:31)
--- NOTE | 2020-07-14 09:49 | Anesthesiology Consultation ---
Date of Service July 14, 2020 Assessment & Plan (1) Encounter for pre-operative examination: History Surgery Operation Date: 07/14/20 12:00 Proposed Procedures p Incision and Drainage General - Adrian Osorio DMD s Excision Oral Cavity - Adrian Osorio DMD Height/Weight Height: 5 ft 7 in Weight: 77 kg Allergies Allergy/AdvReac Type Severity Reaction Status Date / Time No Known Allergies Allergy Unknown Verified 07/13/20 11:41 Medications Home Medications Medication Instructions Recorded Confirmed Last Taken aspirin 81 mg PO DAILY 07/13/20 07/13/20 07/12/20 atorvastatin 20 mg PO DAILY 07/13/20 07/13/20 07/12/20 bupropion HCl 150 mg PO DAILY 07/13/20 07/13/20 07/12/20 bupropion HCl 300 mg PO DAILY 07/13/20 07/13/20 07/12/20 cholecalciferol (vitamin D3) 10 mcg PO DAILY 07/13/20 07/13/20 07/12/20 [Vitamin D3] duloxetine 120 mg PO DAILY 07/13/20 07/13/20 07/12/20 magnesium oxide 400 mg PO DAILY 07/13/20 07/13/20 07/12/20 meloxicam 7.5 mg PO BID 07/13/20 07/13/20 07/12/20 multivitamin 1 tab PO DAILY 07/13/20 07/13/20 07/12/20 omeprazole 40 mg PO BID 07/13/20 07/13/20 07/12/20 oxycodone 10 mg PO Q12H 07/13/20 07/13/20 07/13/20 oxycodone 10 mg PO Q8H PRN 07/13/20 07/13/20 07/12/20 potassium 99 mg PO DAILY 07/13/20 07/13/20 07/12/20 propranolol 20 mg PO BID 07/13/20 07/13/20 07/12/20 quetiapine 25 mg PO HS 07/13/20 07/13/20 07/12/20 ropinirole 1 mg PO DAILY 07/13/20 07/13/20 07/12/20 terazosin 1 mg PO BID 07/13/20 07/13/20 07/12/20 vitamin B complex 1 tab PO DAILY 07/13/20 07/13/2007/12/20 Active Medications Generic Name Dose Route Start Last Admin Trade Name Freq PRN Reason Stop Dose Admin Acetaminophen 1,000 mg 07/13/20 16:27 07/14/20 06:46 Acetaminophen 1000 Mg/100 Ml Iv IV 07/14/20 16:26 1,000 mg Q8H PRN Administration Pain or Fever Acetaminophen 325 mg 07/13/20 19:23 07/13/20 20:42 Acetaminophen 325 Mg Tab PO 08/12/20 19:22 325 mg Q6H PRN Administration Pain or Fever Atorvastatin Calcium 20 mg 07/14/20 09:00 07/14/20 08:28 Atorvastatin 20 Mg Tab PO 08/13/20 08:59 20 mg DAILY ANNIE Administration Bupropion HCl 300 mg 07/14/20 09:00 07/14/20 08:28 Bupropion Xl 300 Mg Tabcr PO 08/13/20 08:59 300 mg DAILY ANNIE Administration Bupropion HCl 150 mg 07/14/20 09:00 07/14/20 08:29 Bupropion Xl 150 Mg Tabcr PO 08/13/20 08:59 150 mg DAILY ANNIE Administration Lorazepam 0.5 mg in 1 mls @ 1 mls/min 07/13/20 16:27 07/14/20 07:25 Ativan IV 08/12/20 16:26 1 mls/min Q6H PRN Administration Anxiety Piperacillin Sod/Tazobactam 115 mls @ 28.75 mls/hr 07/13/20 22:00 07/14/20 11:09 Sod 3.375 gm/ Dextrose IV 07/23/20 21:59 Infused Q8H ANNIE Infusion Protocol Lidocaine HCl 15 ml 07/13/20 17:55 07/14/20 03:49 Lidocaine Hcl Viscous Soln 2% 15 Ml Udc MT 08/12/20 17:54 15 ml PRN PRN Administration Pain Morphine Sulfate 2 mg 07/13/20 17:13 07/14/20 03:09 Morphine Sulfate 2 Mg/Ml Carp IV 07/27/20 16:26 2 mg Q6H PRN Administration severe pain Oxycodone HCl 5 mg 07/13/20 19:23 07/14/20 03:49 Oxycodone Hcl Ir 5 Mg Tab (Immediate Release) PO 07/27/20 19:22 5 mg Q6H PRN Administration Moderate Pain Propranolol HCl 20 mg 07/13/20 21:00 07/14/20 08:28 Propranolol Hcl 20 Mg Tab PO 08/12/20 20:59 20 mg BID ANNIE Administration Quetiapine Fumarate 25 mg 07/13/20 21:00 07/13/20 20:42 Quetiapine Fumarate 25 Mg Tablet PO 08/12/20 20:59 25 mg HS ANNIE Administration Ropinirole HCl 1 mg 07/14/20 09:00 07/14/20 08:31 Ropinirole Hcl 1 Mg Tablet PO 08/13/20 08:59 1 mg DAILY ANNIE Administration Terazosin HCl 1 mg 07/13/20 21:00 07/14/20 08:29 Terazosin Hcl 1 Mg Cap PO 08/12/20 20:59 1 mg BID ANNIE Administration NPO Date Last Intake of Fluids: 07/14/20 Time Last Intake of Fluids: 01:00 Date Last Intake of Solids: 07/13/20 Time Last Intake of Solids: 23:00 Past Medical History Medical History Anxiety Chronic pain Depression GERD (gastroesophageal reflux disease) Hyperlipidemia Past Family History Family History Other Cancer Diabetes Past Surgical History Surgical History History of back surgery Social History Smoking Status: Never smoker Hx Alcohol Use: Yes Alcohol type: beer, wine and hard liquor alcohol intake frequency: a few times a month Hx Substance Use: No substance use type: does not use Physical Exam Vital Signs Last Vital Signs Temp 37.4 C 07/14/20 08:02 Pulse 83 07/14/20 08:02 Resp 16 07/14/20 08:02 BP 134/79 07/14/20 08:02 Pulse Ox 94 07/14/20 08:02 Testing Laboratory Results 07/14/20 06:30 07/14/20 06:30 PT 10.9 Seconds (9.0-12.0) 07/13/20 11:30 INR 1.0 (0.9-1.1) 07/13/20 11:30 APTT 33.9 Seconds (21.0-31.0) H 07/13/20 11:30 Urine Color Yellow 07/13/20 12:56 Urine Appearance Clear (Clear) 07/13/20 12:56 Urine pH 5.0 (4.5-7.5) 07/13/20 12:56 Ur Specific [place] 1.014 (1.000-1.030) 07/13/20 12:56 Urine Protein Negative (Negative) 07/13/20 12:56 Urine Glucose (UA) Negative (Negative) 07/13/20 12:56 Urine Ketones 3+ (Negative) H 07/13/20 12:56 Urine Nitrite Negative (Negative) 07/13/20 12:56 Ur Leukocyte Esterase Negative (Negative) 07/13/20 12:56 Electrocardiogram Date: 07/14/20 Normal sinus rhythm Left axis deviation Abnormal ECG When compared with ECG of 19-MAR-2015 19:51, Vent. rate has decreased BY 33 BPM
[2020-07-14] MEDS ORDERED: MIDAZOLAM HCL 1 MG/ML 2ML VIAL ONE (10:39)
[2020-07-14] MEDS ORDERED: fentaNYL citrate 100 MCG/2 ML VIAL ONE ×2 (10:39→12:52)
[2020-07-14] MEDS ORDERED: SUCCINYLCHOLINE CHLORIDE 20 MG/ML 10 ML VIAL IV ONE (10:41)
[2020-07-14] MEDS ORDERED: PROPOFOL IV EMULSION 10 MG/ML 20 ML VIAL IV ONE (10:41)
[2020-07-14] MEDS ORDERED: LIDOCAINE HCL 2% 2 ML VIAL/AMP(20MG/ML) INFIL ONE (10:41)
[2020-07-14] MEDS ORDERED: CHLORHEXIDINE GLUCONATE 0.12% 480 ML ONE (11:10)
[2020-07-14] MEDS ORDERED: BUPIVACAINE/EPINEPHRINE 0.5% 1:200,000 1.8 ML CARP ONE (11:10)
[2020-07-14] MEDS ORDERED: ATROPINE SULFATE 0.1 MG/ML 10ML SYR IV PRN (11:17)
[2020-07-14] MEDS ORDERED: fentaNYL citrate 100 MCG/2 ML VIAL IV PRN (11:17)
[2020-07-14] MEDS ORDERED: HYDROmorphone INJ 1 MG/ML SYRINGE IV PRN (11:17)
[2020-07-14] MEDS ORDERED: ePHEDrine sulfate 50 MG/ML AMP IV PRN (11:17)
[2020-07-14] MEDS ORDERED: ONDANSETRON INJ 2 MG/ML 2 ML VIAL IV PRN (11:17)
--- NOTE | 2020-07-14 11:47 | History & Physical Bridge Note ---
Date of Service July 14, 2020 History & Physical Bridge Note I have examined the patient, reviewed the History & Physical and in the interval since the performance of the History & Physical I have noted the following changes of clinical significance: no changes noted More swelling intraoral of the mandibular space and floor of mouth. Plan L&D and Ext of now OK for procedure
[2020-07-14] MEDS ORDERED: ONDANSETRON INJ 2 MG/ML 2 ML VIAL ONE (12:56)
[2020-07-14] MEDS ORDERED: DEXAMETHASONE SOD INJ 4 MG/ML VIAL ONE (12:56)
--- NOTE | 2020-07-14 13:35 | Operative Report ---
Post Operative Report Pre & Post Diagnosis PLEASE SEE FULL OP REPORT TIME STAMPED AT 13.36 ADRIAN HART DMD Operation Date: 07/14/20 12:30 Pre-Op Diagnosis: DENTAL ABSCESS Post-Op Diagnosis: DENTAL ABSCESS I identified the patient and participated in the time-out.: Yes Procedure Operation Date: 07/14/20 12:30 Actual Procedures p Incision and Drainage of face(Right) - Adrian Hart DMD s Excision Oral Cavity of fractured tooth #31 - Adrian Hart DMD Surgeon Adrian Hart DMD Programming Development Project Manager NONE Estimated Blood Loss 10 Findings Consistent with Post-Op Diagnosis Specimens see OP report at 13;36 Description of Procedure see report times stamped 13:36 I attest to the content of the Intraoperative Record and any orders documented therein. Any exceptions are noted below.
--- NOTE | 2020-07-14 13:36 | Post Operative Brief Note ---
PG Immediate Post Op with CF Date of Surgery July 14, 2020 Pre & Post Diagnosis Operation Date: 07/14/20 12:30 Pre-Op Diagnosis: DENTAL ABSCESS Post-Op Diagnosis: DENTAL ABSCESS I identified the patient and participated in the time-out.: Yes Procedure Operation Date: 07/14/20 12:30 Actual Procedures p Incision and Drainage of face(Right) - Adrian Osorio DMD s Excision Oral Cavity of fractured tooth #31 - Adrian Osorio DMD Surgeon Adrian Osorio DMD Senior Escrow Officer none Estimated Blood Loss 10 Findings Consistent with Post-Op Diagnosis Specimens Specimen Description: Culture set #1 Submandibular abscess for aero/jaylen and gram. A. Cyst right jaw.
--- NOTE | 2020-07-14 13:49 | Operative Report ---
Post Operative Report Pre & Post Diagnosis Operation Date: 07/14/20 12:30 Pre-Op Diagnosis: DENTAL ABSCESS Post-Op Diagnosis: DENTAL ABSCESS I identified the patient and participated in the time-out.: Yes Procedure Operation Date: 07/14/20 12:30 Actual Procedures p Incision and Drainage of face(Right) - Adrian Osorio DMD s Excision Oral Cavity of fractured tooth #31 - Adrian Osorio DMD Actual Procedures p Incision and Drainage Submandibular Abscess; Removal of Tooth #28(Not Applicable) - Adrian Osorio DMD Once cleared for surgery general anesthesia was achieved, the eyes were protected by the anesthesia dept criteria. A time out was take for patient ID, antibiotics, equipment and position verification once all agreed the procedure began. Local anesthesia using Marcaine with a vasoconstrictor ( 1.8 ml per site) given into right inferior alveolar nerve A throat pack was placed after the oral cavity was irrigated with saline. Once a surgical level of anesthesia was obtained and the local anesthesia was given time for the blocks the surgery was started. I turned my attention to the infection which was located in the floor of the mouth and submental area. The tongue was elevated and there was also swelling associated with tooth #31 ( see CT scan report) Incision and Drainage Using a 15 blade an incision was made lateral to the alveolar ridge posterior to # 31 as there was a very large dense mass of tissue. Once the incision was made a lot of pus extruded from the site. This drainage was cultured for anaerobic and aerobic bacteria. A curved hemostat was carefully placed into the infected space along the medial side of the lower jaw and into the sublingual space as well as the submandibular space. Some further drainage was now allowed to escape. I palpated the chin and submental area and no further drainage was expressed. The area was irrigated with at least 100 ml of NS solution. I now turned my attention to remove the # 31tooth. Lower # 31 The full thick Muco-periosteal flap was made on the facial aspect from # 26-32. The flap was reflected to expose the the subperiosteal space the bone adjacent to # 31. The rogue and drill was used to remove bone, the tooth was removed with a 301 elevator, the mental nerve was intact, there was a large amount of granulation tissue on the apex and some more pus that was expressed. To prevent further tissue and tongue irritation using a round but the sharp edges of the teeth were smoothed. Excision of mass right posterior area 1 cm a large mass was present over the area were tooth # 32 was removed. This mass extended from the distal of # 31 to the retromolar pad area. With a 15 blade an elliptical excision was made to remove the mass. Care was take to stay well above the lingual nerve location. However given the gross swelling and poor tissue quality the anatomy was far less then ideal. Once I was satisfied with the excision, the bone was filled smooth and the area was irrigated, all bleeding was controlled. Using both a 2-0 and 3-0 chromic closure was obtained. The tissue was sent for pathology. When all the procedure was completed I inspected the site to insure all bleeding was controlled. I removed the throat pack and suctioned the throat. A gauze pressure dressing was placed. All instrument and sponge count was correct. the patient was allowed to awake from the anesthesia. Once full awake the anesthesia tube was removed and the patient was taken to the recovery room with all vital sign stable. The patient tolerated the surgery very well. I will follow the patient in my office, Rx and instructions will be given upon discharge. Surgeon Adrian Osorio, DMD Digital Media Director none Estimated Blood Loss 10 Findings Consistent with Post-Op Diagnosis Specimens tissue Biopsy and C and S Description of Procedure I&D, Bx of mass and ext # 31 I attest to the content of the Intraoperative Record and any orders documented therein. Any exceptions are noted below. Supervising Physician Co-Signing Physician Notes I, Dr. Buddy Macedo, have seen and examined the patient Jatin Cooper with physician after school program assistant On Physical Exam General: no acute distress HEENT: inflamed right lower gums, right lower jaw tenderness to palpation Heart: tachycardic Lung: clear to auscultation, no wheezing Abdomen: soft, nontender, positive bowel sounds Neuro/Psych: no focal neurological deficits, normal affect Assessment and Plan -This is a patient with right lower jaw pain and sepsis from oral infection and dental abscess that were caused by fractured molars (three) -patient was given IV Unasyn and already 2 liters of IV fluids by the ED provider; ED provider called Oral & Maxillofacial Surgeon Dr. Osorio who plans to take patient to operating room -COVID 19 screening was ordered to be performed before patient goes to operating room for procedure -will plan to continue IV antibiotics and use IV Zosyn for better microbial coverage. Follow the blood cultures and any subsequent specimens that Dr. Osorio sends off from the operating room -give further IV fluids as needed additional 1 more liter of IV fluids to be given in the ED. Determine when patient can be allowed to have a diet after the procedure. -give prn pain medications and IV acetaminophen for pain or fever -avoid NSAIDs to prevent exacerbating any potential oral bleed -prn IV metoprolol 5 mg q4 hours as needed if heart rates above 110 bpm. Patient can resume home oral dose of propanol and or oral home medications for anxiety and depression when allowed to eat. Can give prn IV Ativan as substitute for now -agree with other assessment and plans as documented by physician after school program assistant -My colleague hospitalist Dr. Bowser will be following the patient starting on 07/14/2020
--- NOTE | 2020-07-14 14:14 | Anesthesiology Progress Note ---
Date of Service July 14, 2020 Anesthesia Post Procedure Vital Signs Vital Signs: Temp Pulse Pulse Pulse Resp BP BP 07/14/20 14:10 89 14 137/82 07/14/20 14:00 86 18 130/87 07/14/20 13:50 89 18 135/97 07/14/20 13:41 36.4 C L 90 16 142/96 H 07/14/20 08:02 37.4 C 83 16 134/79 07/14/20 07:46 72 07/14/20 03:05 37.5 C 07/13/20 22:00 36.8 C 102 H 20 105/71 07/13/20 18:50 37.5 C 92 H 18 120/79 07/13/20 16:05 92 H 18 125/83 07/13/20 15:51 116 H 124/93 07/13/20 14:53 38.1 C H Pulse Ox 07/14/20 14:10 93 07/14/20 14:00 100 07/14/20 13:50 100 07/14/20 13:41 100 07/14/20 08:02 94 07/14/20 07:46 07/14/20 03:05 07/13/20 22:00 91 07/13/20 18:50 95 07/13/20 16:05 94 07/13/20 15:51 07/13/20 14:53 Pain Intensity Teeth: Pain Intensity: 5 Transfer of Care Handoff Completed per policy Notes Mental Status: alert / awake / arousable and participated in evaluation Patient Amnestic to Procedure: Yes Nausea / Vomiting: adequately controlled Pain: adequately controlled Airway Patency, RR, SpO2: stable & adequate BP & HR: stable & adequate Hydration State: stable & adequate Anesthetic Complications: no major complications apparent and Pt Satisfied with anesthetic care
[2020-07-14] MEDS: ACETAMINOPHEN 325 MG TAB PO PRN (15:53)
--- NOTE | 2020-07-14 18:09 | Hospitalist Progress Note ---
Date of Service July 14, 2020 Assessment & Plan (1) Dental abscess: right lower jaw pain and sepsis from oral infection and dental abscess that were caused by fractured molars (three) Pt is 54 y/o M with PMH anxiety, depression, dyslipidemia, chronic pain presented to ER with complaint of right-sided dental pain after right upper and lower molar broke one week ago. Worsening jaw pain and facial edema. +fever/chills, nausea. No vomiting 1. A 2.2 x 0.5 cm peripheral enhancing collection abutting the lingual surface of the mandible adjacent to ADA 31 consistent with an abscess. There is a 5 mm periapical lucency at ADA 31. 2. Mild thickening/edema within the right submandibular gland and mild right submandibular lymphadenopathy. This likely reactive to the adjacent mass process. 3. Slight mass effect along the right side of the oropharynx at this level. However, the airway remains patent. Meets sepsis criteria Source of infection dental abscess Appreciate input from maxillofacial surgery Status post dental procedure : Actual Procedures p Incision and Drainage of face(Right) - Adrian Osorio DMD s Excision Oral Cavity of fractured tooth #31 - Adrian Osorio DMD Patient reports improvement of pain and discomfort after procedure Continue IV Zosyn (2) Sinus tachycardia: Heart rate normalized Probable secondary to fever, dehydration, and missed propranolol dosing Telemetry discontinued (3) Chronic pain: Follows with outpatient MTM pain management Patient's oxycodone resumed (4) Anxiety: (5) Depression: Follows with psych outpatient Outpatient meds resumed (6) Hyperlipidemia: Statin DVT Prophylaxis -SCDs Full Code as per discussion with pt Follows with Dr Campos for routine care Disposition: Expected to be discharged home when medically stable Admission and Anticipated Discharge Date Admission Date: July 13, 2020 Physical Exam Physical Exam: General: no acute distress, WDWN Head: normocephalic, atraumatic Eyes: PERRL, EOM's intact, conjunctiva non-injected, anicteric ENT: normal inspection external ears, nose, MOUTH: Mucous membranes moist, no lesions, tongue and gums appear normal. Mucous membranes; poor dentition throughout, right upper and lower molars fractured; +right sided facial improved Neck: supple, trachea midline, +cervical lymphadenopathy, ROM neck intact Lungs: clear, no respiratory distress, no wheezing/rhonchi/rales CV: regular rhythm, Abd: normal BS, soft, non-tender Ext: no cyanosis, no calf tenderness Neuro: A&O x 3, no focal deficits noted, normal affect Skin: warm, dry Results & Data Results & Data ([facility]) Vital Signs (Past 12 Hours) Vital Signs Temp Pulse Pulse Pulse Resp BP Pulse Ox 07/14/20 15:09 37.0 C 93 H 17 137/88 93 07/14/20 14:19 36.5 C 85 12 132/97 93 07/14/20 14:10 89 14 137/82 93 07/14/20 14:00 86 18 130/87 100 07/14/20 13:50 89 18 135/97 100 07/14/20 13:41 36.4 C L 90 16 142/96 H 100 07/14/20 08:02 37.4 C 83 16 134/79 94 07/14/20 07:46 72
[2020-07-14] MEDS: QUEtiapine FUMARATE 25 MG TABLET PO SCH (20:48)
[2020-07-15] MEDS: oxyCODONE HCL IR 5 MG TAB (IMMEDIATE RELEASE) PO PRN ×2 (02:49→08:58)
[2020-07-15] MEDS: PIPERACILLIN/TAZOBACTAM 3.375 GM in DEXTROSE 5% 100 ML IV SCH (06:01)
[2020-07-15] MEDS: ACETAMINOPHEN 325 MG TAB PO PRN (06:10)
--- NOTE | 2020-07-15 06:45 | Electrocardiogram Report ---
Test Reason : Blood Pressure : / mmHG Vent. Rate : 068 BPM Atrial Rate : 068 BPM P-R Int : 154 ms QRS Dur : 084 ms QT Int : 404 ms P-R-T Axes : 022 -34 015 degrees QTc Int : 429 ms Normal sinus rhythm Left axis deviation Abnormal ECG When compared with ECG of 19-MAR-2015 19:51, Vent. rate has decreased BY 33 BPM Confirmed by Franki Silva ([id number]) on 07/15/2020 6:45:15 AM Referred By: REFERRED SELF Confirmed By:Franki Silva
[2020-07-15] MEDS: ATORVASTATIN 20 MG TAB PO SCH (08:55)
[2020-07-15] MEDS: buPROPion XL 300 MG TABCR PO SCH (08:55)
[2020-07-15] MEDS: TERAZOSIN HCL 1 MG CAP PO SCH (08:55)
[2020-07-15] MEDS: buPROPion XL 150 MG TABCR PO SCH (08:55)
[2020-07-15] MEDS: rOPINIRole HCL 1 MG TABLET PO SCH (08:55)
[2020-07-15] MEDS: PROPRANOLOL HCL 20 MG TAB PO SCH (08:55)
--- NOTE | 2020-07-15 09:11 | Progress Note ---
Date of Service Doing very well this AM swelling has decreased and pain is controlled. Tissue is still inflamed from the infection I&D and recent surgery. I reviewed home care diet, oral antibiotics and follow up with me. awaiting results of C7S and Bx results OK for D/C today July 15, 2020 Assessment & Plan Admission and Anticipated Discharge Date Admission Date: July 13, 2020 Results & Data ([facility]) Vital Signs (Past 12 Hours) Vital Signs Temp Pulse Pulse Resp BP Pulse Ox 07/15/20 07:22 36.8 C 77 16 124/77 94 07/14/20 22:00 36.9 C 103 H 18 122/77 96 PG Care Time/CCT Total # of Minutes Spent Total Time Spent with Patient: Total time spent is greater than 50% in coordination of care (as documented) at patient's floor/unit and/or counseling patient: Coding Level of Care Code 01170 Subseq Hosp Care Lvl 1
--- NOTE | 2020-07-15 10:29 | Discharge Summary ---
Date of Service July 15, 2020 Admission HPI Per Admitting Provider Pt is 54 y/o M with PMH anxiety, depression, dyslipidemia, chronic pain presented to ER with complaint of right-sided dental pain x 1 week. Patient states approximately 1 week ago was eating cashew when right upper and lower molar broke. Patient states past several days has been having pain to jaw and noted right facial swelling. 3 days ago patient noticed temp of 100 F. Has not taken temperature last couple days however has felt chills. Patient also complains of nausea without vomiting. Today noticed foul taste in mouth and purulent drainage from right lower gums. Complains of pain with chewing. Today noticed limited ability to open jaw. Also pain with swallowing. Able to swallow saliva. Has not followed with dentist. Only took oxycodone today, did not have his other daily medications. Denies diarrhea, constipation, GORDON, dizziness, syncope, vision changes, neck pain, CP, SOB, orthopnea, palpitations, cough, otalgia, rhinorrhea, abdominal pain, paresthesias, weakness, extremity weakness, extremity edema, rashes, urinary symptoms. Principal Diagnosis s/p dental abscess and fractured # 31, infected cyst right lower jaw Discharge Exam Constitutional WD/WN, vitals as above Eyes EOM intact bilaterally ENMT Mouth: + poor dentition and + chipped teeth; no dentition abnormality Neck normal visual inspection and trachea midline Respiratory normal respiratory effort, lungs clear to auscultation normal respiratory effort Auscultation: lungs clear to auscultation bilaterally Cardiovascular RRR, no murmur, no edema Rate/Rhythm: regular rate and regular rhythm Gastrointestinal (Abdomen) normal bowel sounds, soft, nontender, no hepatosplenomegaly Musculoskeletal no cyanosis or clubbing, extremities motor strength 5/5 Skin no rashes, warm and dry Psychiatric Orientation: alert and oriented x 3 Discharge Data Allergies Allergy/AdvReac Type Severity Reaction Status Date / Time No Known Allergies Allergy Unknown Verified 07/13/20 11:41 Consultations 07/13/20 15:03 ED Decision to Admit Stat 07/13/20 16:27 Consult Oromaxillofacial Surgery Routine Procedures Performed Operation Date: 07/14/20 12:30 Actual Procedures p Incision and Drainage of face(Right) - Adrian Osorio DMD s Excision Oral Cavity of fractured tooth #31 - Adrian Osorio DMD Ordered Studies 07/13/20 11:18 CT facial bones w con Stat Hospital Course (1) Dental abscess: right lower jaw pain and sepsis from oral infection and dental abscess that were caused by fractured molars (three) Pt is 54 y/o M with PMH anxiety, depression, dyslipidemia, chronic pain presented to ER with complaint of right-sided dental pain after right upper and lower molar broke one week ago. Worsening jaw pain and facial edema. +fever/chills, nausea. No vomiting 1. A 2.2 x 0.5 cm peripheral enhancing collection abutting the lingual surface of the mandible adjacent to ADA 31 consistent with an abscess. There is a 5 mm periapical lucency at ADA 31. 2. Mild thickening/edema within the right submandibular gland and mild right submandibular lymphadenopathy. This likely reactive to the adjacent mass process. Meets sepsis criteria Source of infection dental abscess-patient started on treatment with empiric antibiotic with IV Zosyn Appreciate input from maxillofacial surgery Status post dental procedure : Actual Procedures Incision and Drainage of face(Right) - Adrian Osorio, SAI Excision Oral Cavity of fractured tooth #31 - Adrian Osorio, DMD/excision of small mass from dental cavity Excision of large/1 cm mass right posterior area -specimen sent for pathology Sepsis has resolved post procedure, no fever chills leukocytosis has resolved Cultures been negative Patient reports improvement of pain and discomfort after procedure Evaluated by maxillofacial Dr. Osorio at this morning Stable to be discharged home, patient will need 10 days of p.o. Augmentin Will be followed up with Dr. Osorio in office for procedure follow-up and biopsy report will be updated on clinic visit (2) Sinus tachycardia: Heart rate normalized Probable secondary to fever, dehydration, and missed propranolol dosing Propranolol resumed, patient remains afebrile, dehydration corrected with IV fluids Telemetry discontinued (3) Chronic pain: Follows with outpatient MTM pain management Patient's oxycodone resumed (4) Anxiety: (5) Depression: Follows with psych outpatient Outpatient meds resumed (6) Hyperlipidemia: Statin DVT Prophylaxis -SCDs Full Code as per discussion with pt Follows with Dr Campos for routine care Disposition: Patient is stable to be discharged home today Total Time Total Time Spent Total Time Spent (In Minutes): 35 minutes Total Time Includes: Examination of the Patient, Discharge Planning and Medication Reconciliation Discharge Plan Discharge Items Patient Disposition: Home - Self-Care Reason For Visit: DENTAL ABSCESS Discharge Diagnosis: s/p dental abscess and fractured # 31, infected cyst right lower jaw Condition on Discharge: Good Activity: Resume your previous activity Lifting: Gradually increase as tolerated Bathing: No limitations Exercise/Sports: Gradually increase as tolerated Driving/Machine Use: Resume 1 day after discharge Non-emergency contact: Primary Care Provider Call non-emergency contact if: you have any medication questions, your temperature is above 101.5, your wound has increased redness, your wound has increased drainage and your wound pain has increased Follow-up/Referrals: Brittany Campos MD [Primary Care Provider] - (HOSPITAL FOLLOW UP WITH FAMILY PHYSICIAN IN A WEEK ) Adrian Osorio DMD [Physician] - Diet: Regular Diet Texture: Easy to Chew Jadon Attending Provider Instructions: ADDITIONAL ACTIVITY RECOMMENDATIONS: * [place] teeth after every meal. It is very important to keep your mouth clean to prevent infection. SPECIAL CARE INSTRUCTIONS: * Keep ice on the side of your face for the next 24 to 36 hours. This will help keep the swelling down. * After 36 hours, apply heat (hot water bottle or heating pad) for the next two days, as often as possible. * Tomorrow start rinsing your mouth with 1/2 teaspoon salt in 8 ounces warm water. This rinse should be used every 4-6 hours. * You may experience slight nausea. To prevent this, never take your medication on an empty stomach. If nauseated, take small sips of angelica tanika until you feel better; then you may start on applesauce and toast. * Some swelling is common. It should gradually decrease within 4-5 days. * A certain amount of bleeding is to be expected. It is often possible to control mild oozing by placing folded gauze over the area and biting down for 30 minutes. If you are unable to control excessive bleeding, call Dr Osorio at [phone] * You may experience some discomfort for a few days. If pain or swelling increases, Call Dr Osorio OFFICE [address] [facility], [place], [place] [employer] Provider Instructions: HOSPITAL FOLLOW UP WITH FAMILY PHYSICIAN IN A WEEK Pending Studies at Discharge: Yes Studies:: Bx results Stand-Alone Forms: My [employer], Opioid Pain Management, Smoking Cessation Medications and DC Order Prescriptions: Continued multivitamin Tablet 1 tab PO DAILY RF: 0 quetiapine 25 mg tablet 25 mg PO HS RF: 0 atorvastatin 20 mg tablet 20 mg PO DAILY RF: 0 ropinirole 1 mg Tablet 1 mg PO DAILY RF: 0 terazosin 1 mg capsule 1 mg PO BID RF: 0 omeprazole 40 mg capsule,delayed release(DR/EC) 40 mg PO BID RF: 0 vitamin B complex Tablet 1 tab PO DAILY RF: 0 propranolol 20 mg tablet 20 mg PO BID RF: 0 cholecalciferol (vitamin D3) [Vitamin D3] 10 mcg (400 unit) Capsule 10 mcg PO DAILY RF: 0 bupropion HCl 150 mg tablet extended release 24 hr 150 mg PO DAILY RF: 0 duloxetine 60 mg capsule,delayed release(DR/EC) 120 mg PO DAILY RF: 0 oxycodone 10 mg tablet,oral only,ext.rel.12 hr 10 mg PO Q12H RF: 0 magnesium oxide 400 mg magnesium Tablet 400 mg PO DAILY RF: 0 potassium 99 mg Tablet 99 mg PO DAILY RF: 0 bupropion HCl 300 mg tablet extended release 24 hr 300 mg PO DAILY RF: 0 oxycodone 10 mg tablet 10 mg PO Q8H PRN (Reason: Pain) RF: 0 amoxicillin-pot clavulanate 875-125 mg tablet 1 tab PO Q12H Qty: 20 RF: 0 Discontinued meloxicam 7.5 mg Tablet 7.5 mg PO BID RF: 0 aspirin 81 mg Capsule,Delayed Release(Dr/Ec) 81 mg PO DAILY RF: 0 Discharge Orders: Discharge Order (Routine); Ordered 07/15/20 Ordered By: Adrian Osorio Admission Data Admit Date/Time: 07/13/20 15:09 Attending Provider: Earline Galvan Admit Provider: Buddy Macedo Primary Care Provider: Brittany Campos Other Providers: Buddy Macedo ; Adrian Osorio Other Interventions: Discharge Summary Assessment (RN) Last Done: 07/15/20 09:31
== END 2020-07-15 10:17 | disposition home or self-care (01) | DRG 872 ==
LOC: ED 10:48 → SUATTDRO 15:09 → 2W 15:09